=== PATIENT | male | born 1990 | race Caucasian/White ===

== ENCOUNTER 2020-11-21 13:58 | Emergency (ER) | payer BC, OTHER ==
[~2020-11-21] VITALS: Ht 180.3 cm; Wt 86.4 kg
[2020-11-21 13:58] VITALS: BP 120/74
== END 2020-11-21 16:00 | disposition left against medical advice (07) ==
LOC: M ED 13:58
DX: Z53.21 Procedure and treatment not carried out due to patient leaving prior to being seen by health care provider (principal)

== ENCOUNTER → 2023-03-18 | Outpatient (CLI) | payer OTHER | LOC: M SOG 08:08 | PROVIDERS: ATTEND Physician Assistant | DX: M54.50 Low back pain, unspecified (principal) ==

== ENCOUNTER → 2023-06-28 | Outpatient (CLI) | payer OTHER | LOC: M RAD 12:24 | PROVIDERS: ATTEND Pain Medicine Interventional Pain Medicine | DX: M47.817 Spondylosis without myelopathy or radiculopathy, lumbosacral region (principal) ==